=== PATIENT | male | born 1980 | race Two or more races ===

== ENCOUNTER 2017-07-29 12:04 | Emergency (ER) | payer SELFPAY ==
[~2017-07-29] VITALS: Ht 167.6 cm; Wt 82.0 kg
[2017-07-29 12:36] VITALS: BP 105/68
[2017-07-29] MEDS ORDERED: FLUORESCEIN SODIUM 1MG/STRIP RIGHTEYE ONE (12:45)
[2017-07-29] MEDS ORDERED: TETRACAINE 0.5% OPHTH DROPS 4ML LEFTEYE ONE (14:45)
== END 2017-07-29 15:48 | disposition home or self-care (01) ==
LOC: ER 13:17
DX: S05.01XA Injury of conjunctiva and corneal abrasion without foreign body, right eye, initial encounter (principal); W22.8XXA Striking against or struck by other objects, initial encounter; Y93.89 Activity, other specified; Y92.89 Other specified places as the place of occurrence of the external cause
CPT/HCPCS: 99283

== ENCOUNTER 2022-07-07 13:12 | Emergency (ER) | payer BC ==
[~2022-07-07] VITALS: Ht 175.3 cm; Wt 78.0 kg
[2022-07-07 13:37] VITALS: BP 117/72
[2022-07-07 14:08] LABS: CLARITY URINE CLEAR (CLEAR); COLOR URINE YELLOW (YELLOW); KETONES URINE NEGATIVE (NEGATIVE); LEUKOCYTE ESTERASE URINE NEGATIVE (NEGATIVE); NITRITE URINE NEGATIVE (NEGATIVE); OCCULT BLOOD URINE NEGATIVE (NEGATIVE); PH URINE 5.5 (4.5-8.0); PROTEIN URINE NEGATIVE (NEGATIVE); SPECIFIC GRAVITY URINE 1.022 (1.005-1.030); UROBILINOGEN URINE 0.2 E.U./dL (0.2-1.0)
[2022-07-07] MEDS ORDERED: DOXY100C5 MT (16:39)
[2022-07-07] MEDS ORDERED: TAMS-11 MT (16:39)
[2022-07-07] MEDS ORDERED: CEFTRIAXONE SODIUM 500 MG/VIAL IM ONE (16:45)
== END 2022-07-07 16:58 | disposition home or self-care (01) ==
LOC: ER 13:24
DX: R30.0 Dysuria (principal); R10.2 Pelvic and perineal pain
CPT/HCPCS: 81003; 96372; 99283; J0696; Z7610